=== PATIENT | female | born 1985 | race American Indian/Alaskan Native ===

== ENCOUNTER 2018-03-08 23:37 | Emergency (ER) | payer MEDICAID ==
[2018-03-08 23:48] VITALS: BP 123/78
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
[2018-03-09] MEDS ORDERED: LOVENOX SUB-Q ONE ×3 (01:24→01:26)
[2018-03-09] MEDS ORDERED: LOVENOX SUB-Q SCH (10:00)
== END 2018-03-09 02:00 | disposition home or self-care (01) ==
LOC: ED 23:37
DX: M79.604 Pain in right leg (principal); J45.909 Unspecified asthma, uncomplicated; F17.200 Nicotine dependence, unspecified, uncomplicated; F12.10 Cannabis abuse, uncomplicated; Z86.718 Personal history of other venous thrombosis and embolism; Z86.711 Personal history of pulmonary embolism
CPT/HCPCS: 96372; 99282; J1650

== ENCOUNTER 2018-07-26 01:05 | Emergency (ER) | payer MEDICAID ==
[2018-07-26] MEDS ORDERED: TORADOL IV ONE (04:33)
[2018-07-26] MEDS ORDERED: BENADRYL IV ONE (04:33)
[2018-07-26] MEDS ORDERED: REGLAN IV ONE (04:33)
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
[2018-07-26 05:00] VITALS: BP 117/75
== END 2018-07-26 05:08 | disposition home or self-care (01) ==
LOC: ED 01:05
DX: G43.919 Migraine, unspecified, intractable, without status migrainosus (principal); Z21 Asymptomatic human immunodeficiency virus [HIV] infection status; B37.0 Candidal stomatitis; J45.909 Unspecified asthma, uncomplicated; F17.200 Nicotine dependence, unspecified, uncomplicated; Z86.711 Personal history of pulmonary embolism; Z86.718 Personal history of other venous thrombosis and embolism
CPT/HCPCS: 96374; 96375; 99282; J1200; J1885; J2765

== ENCOUNTER 2019-03-19 03:07 | Emergency (ER) | payer MEDICAID, OTHER ==
[2019-03-19] MEDS ORDERED: TORADOL IV ONE (03:29)
[2019-03-19] MEDS ORDERED: ZOFRAN IV ONE (03:31)
[2019-03-19] MEDS ORDERED: NACL 0.9% 1000 ML 1,000 ML IV ONE (03:31)
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
[2019-03-19] MEDS ORDERED: NORCO 5/325 PO ONE (05:41)
--- NOTE | 2019-03-19 05:51 | Cat Scan Report ---
PROCEDURE: CT HEAD/BRAIN WO CON TECHNIQUE: Computerized tomography of the head was performed without contrast material. CT DOSE LENGTH PRODUCT: mGycm HISTORY: HEADACHE COMPARISONS: None . FINDINGS: There is generalized enlargement of the entire ventricular system compatible with image indicating hy drocephalus. There is acute subarachnoid blood in the left sylvian fissure. The basal cisterns are ef faced. There is no parenchymal hemorrhage. The visualized sinuses are clear. The mastoid air cells ar e well pneumatized. The calvarium appears intact. IMPRESSION: Acute subarachnoid hemorrhage with blood seen in the left sylvian fissure. Generalized communicating hydrocephalus. Effacement of the basal cisterns. Developing cerebral edema cannot be excluded. The findings were discussed with Dr. Emerson at 5:48 AM on 03/19/2019. This document is electronically signed by Deangelo Henry MD., Mar 19 2019 05:48:57 AM ET
[2019-03-19 06:05] LABS: Basophils % (Auto) 0.9 % (0.0-1.8); Eosinophils % (Auto) 0.8 % (0.0-4.3); Hematocrit 27.9 % (30.3-42.9); Lymphocytes # (Auto) 0.4 K/mm3 (1.2-5.4); Lymphocytes % (Auto) 9.7 % (13.4-35.0); Mean Corpuscular HGB Conc 32 % (30-34); Mean Corpuscular Volume 76 fl (79-97); Monocytes # (Auto) 0.3 K/mm3 (0.0-0.8); Monocytes % (Auto) 6.2 % (0.0-7.3); Red Blood Count 3.66 M/mm3 (3.65-5.03)
[2019-03-19 06:08] LABS: Red Cell Distribution Width 21.3 % (13.2-15.2)
[2019-03-19 06:15] LABS: INR 0.98 (0.87-1.13)
[2019-03-19 06:16] LABS: Partial Thromboplastin Time 32.6 Sec. (24.2-36.6)
[2019-03-19 06:28] VITALS: BP 123/76
[2019-03-19 06:30] LABS: Alanine Aminotransferase 14 units/L (7-56); Albumin 4.1 g/dL (3.9-5); BUN/Creatinine Ratio 17; Blood Urea Nitrogen 10 mg/dL (7-17); Calcium 8.1 mg/dL (8.4-10.2); Hemolysis Index 11
[2019-03-19] MEDS ORDERED: KEPPRA 1,000 MG/NS 0.75% 100ML 1,000 MG/100 ML BAG IV ONE (07:00)
[2019-03-19 07:27] LABS: Mean Platelet Volume 10.9 fl (6-12); Platelet Count 96 K/mm3 (140-440)
[2019-03-19] MEDS ORDERED: KEPPRA 1,000 MG in D5W 100 ML IV SCH (18:00)
== END 2019-03-19 07:15 | disposition other institution (70) ==
LOC: ED 03:07
DX: I60.9 Nontraumatic subarachnoid hemorrhage, unspecified (principal); J45.909 Unspecified asthma, uncomplicated; F17.200 Nicotine dependence, unspecified, uncomplicated
CPT/HCPCS: 36415; 70450; 80053; 84703; 85025; 85610; 85730; 96374; 96375; 99285; J1885; J1953; J2405; J7030

== ENCOUNTER 2019-06-07 03:04 | Inpatient (IN) | payer OTHER ==
[2019-06-07 04:30] LABS: Basophils % (Auto) 0.8 % (0.0-1.8); Eosinophils # (Auto) 0.1 K/mm3 (0.0-0.4); Eosinophils % (Auto) 0.9 % (0.0-4.3); Hematocrit 33.3 % (30.3-42.9); Hemoglobin 10.8 gm/dl (10.1-14.3); Lymphocytes # (Auto) 0.8 K/mm3 (1.2-5.4); Lymphocytes % (Auto) 12.4 % (13.4-35.0); Mean Corpuscular HGB Conc 32 % (30-34); Mean Corpuscular Volume 81 fl (79-97); Monocytes # (Auto) 0.4 K/mm3 (0.0-0.8); Monocytes % (Auto) 6.8 % (0.0-7.3); Platelet Count 174 K/mm3 (140-440); Red Blood Count 4.12 M/mm3 (3.65-5.03); Red Cell Distribution Width 17.3 % (13.2-15.2)
[2019-06-07 06:09] LABS: Bilirubin,Urine NEG (Negative); Blood,Urine LG (Negative); Color,Urine Yellow (Yellow); Mucus,Urine 2+ /HPF; Protein,Urine <15 mg/dL mg/dL (Negative); Urobilinogen,Urine < 2.0 mg/dL (<2.0)
--- NOTE | 2019-06-07 07:20 | Ultrasound Report ---
OB Ultrasound HISTORY: vag bleeding, . TECHNIQUE: Grayscale and color Doppler imaging performed. COMPARISON: None FINDINGS: Transabdominal and endovaginal imaging was performed Uterus measures 8.5 x 5.3 x 4.9 cm with endometrial echocomplex measuring 1.7 cm. No intrauterine ges tation is identified. In the left adnexal region, there is an ectopic containing a pole measuring 2 mm vasiliy elating with an EGA of 5 weeks and 5 days. There is cardiac activity is well with a heart rate of 108 bpm. A simple right ovarian cyst is present. No significant pelvic free fluid identified. IMPRESSION: Ectopic in the left adnexal region. Critical result discovered at 0613 hours and called to Dr. Mcdonnell at 0615 hours on 06/07/2019. A read b ack was performed. Signer Name: Leo Esparza MD Signed: 06/07/2019 7:15 AM Workstation Name: [id number]
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
--- NOTE | 2019-06-07 10:02 | Anesthesia Consultation ---
Anesthesia Consult and Med Hx Date of service: 06/07/19 - Airway Anesthetic Teeth Evaluation: Good (broken lower right molar) ROM Head & Neck: Adequate Mental/Hyoid Distance: Adequate Mallampati Class: Class II Intubation Access Assessment: Probably Good - Pulmonary Exam CTA: Yes - Cardiac Exam Cardiac Exam: RRR - Pre-Operative Health Status ASA Pre-Surgery Classification: ASA3 Proposed Anesthetic Plan: General - Pulmonary Hx Smoking: Yes (1-2 cigs/day) Hx Asthma: Yes Hx Respiratory Symptoms: No Home Oxygen Therapy: No - Cardiovascular System Hx Hypertension: No Hx Heart Attack/AMI: No Hx Percutaneous Transluminal Coronary Angioplasty (PTCA): No - Central Nervous System Hx Seizures: No CVA: Yes (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 Noncompliant with medications, including ARVs and xarelto and w/ medical follow up for comorbid conditions. Scheduled for exploratory laparoscopy.
--- NOTE | 2019-06-07 10:04 | Anesthesia Day of Surgery ---
Anesthesia Day of Surgery - Day of Surgery Patient Examined: Yes Patient H&P Reviewed: Yes Patient is NPO: Yes
[2019-06-07] MEDS ORDERED: DILAUDID IV PRN (11:55)
[2019-06-07] MEDS ORDERED: VERSED IV NR (12:00)
[2019-06-07] MEDS ORDERED: TRANSDERM-SCOP TD NR (12:00)
[2019-06-07] MEDS ORDERED: LACTATED RINGERS 1,000 ML IV SCH (12:00)
[2019-06-07] MEDS ORDERED: DILAUDID ONE ×2 (12:53→16:01)
[2019-06-07] MEDS ORDERED: DIPRIVAN 10 MG/ML IV ONE (12:53)
[2019-06-07] MEDS ORDERED: XYLOCAINE MPF 2% ONE (12:55)
[2019-06-07] MEDS ORDERED: QUELICIN ONE (12:56)
[2019-06-07] MEDS ORDERED: ZEMURON IV ONE ×2 (12:57→15:13)
[2019-06-07] MEDS ORDERED: MARCAINE 0.5% INFILTRATI ONE (13:03)
[2019-06-07] MEDS ORDERED: ANCEF/STERILE WATER 2 GM/20 ML IV NR (13:52)
[2019-06-07] MEDS ORDERED: LACTATED RINGERS 1,000 ML ONE (14:54)
[2019-06-07] MEDS ORDERED: ROBINUL ONE (15:39)
[2019-06-07] MEDS ORDERED: BLOXIVERZ ONE (15:39)
[2019-06-07] MEDS ORDERED: ZOFRAN ONE (15:43)
[2019-06-07] MEDS ORDERED: MORPHINE IV PRN ×2 (16:07→20:19)
--- NOTE | 2019-06-07 16:40 | Operative Report ---
Operative Report Operative Report: Date of surgery: 06/07/2019 Admitting diagnosis: Ectopic , previous history of deep venous thrombosis and pulmonary embolism, rupture of cerebral aneurysm, HIV positive status, umbilical hernia. Postoperative diagnosis: The same. Left tubal ectopic . Procedure: Examination under anesthesia, Exploratory laparoscopy, left salpingectomy, repair of umbilical hernia. Surgeon: C.C.MD Sharon Anesthesiologist: Cari Layton M.D. Anesthesia: Gen. anesthesia Findings: There was a saccular swelling on the distal aspect of the left fallopian tube with evidence of burgundy colored coagulum on fimbrial of this left fallopian tube. That was about 50 mL of hemoperitoneum confined largely within the pelvis. Both ovaries were grossly normal. The right fallopian shield was grossly normal. The uterus was normal sized and grossly normal. There were multiple strands of adhesions bridging the anterior superior aspect of the lower and the thoracic cage. The greater omentum swallow as the bowels back with the same suture laparoscope were all grossly normal. Vaginally, the vulva vagina and cervix were grossly normal. Estimated blood loss attributable to surgery: 1 mL or less. Complications: None Procedure in detail: The patient was taken to the operating room and given general anesthesia. The patient was placed in the lithotomy position and prepped in the vulvar vagina and abdomen. The drapes were placed. An indwelling Giordano catheter was inserted. The cervix was stabilized with a Hanks tenaculum. A timeout was done. With the go ahead from the executive associate, a subumbilical curvilinear incision was made. The Veress needle was inserted making sure to point the tip of this instrument into the free hollow of the pelvis. The Veress needle was initially aspirated and there was no blood in the aspirate. The Veress needle was then flushed through with a small quantity of sterile normal saline without any resistance. The general peritoneal cavity was thereafter insufflated with 3 L of carbon dioxide. The 10 mm port with its trocar were inserted into the peritoneal cavity and again pointing the tip of this instrument into the free hollow of the pelvis. The laparoscope confirmed successful access to the peritoneal cavity. Under laparoscopic view two additional 5 mm ports were placed one for each flank. A thorough examination of the peritoneal cavity was done of the findings of the reported. The left tubal ectopic was identified and excised using the endoscopic LigaSure. The existing pneumoperitoneum was suctioned out of the peritoneal cavity. The pelvis was thoroughly irrigated with sterile normal saline. The pneumoperitoneum was expelled. All instruments were retrieved. The small umbilical hernia defect was incorporated into the repair of the surgically placed ostium on the same side and closed with interrupted stitches of 0 Vicryl. The skin was closed subcuticularly with 4-0 Vicryl. The 2 stab incisions in the flange was sealed with Dermabond. The tenaculum placed on the cervix was removed as was the indwelling Giordano catheter. The removed specimen was submitted for histopathology. The patient tolerated the procedure well. All sponge and instrument counts were correct. There were no complications. The estimated blood loss was minimal Patient was returned to the recovery room in very good condition. The patient was fit to go home after fully recovering from general anesthesia and nicked in the protocol for discharge except that she needs instructions from either the hospitalist team or tanning solution maker regarding her prior history of DVT and cerebral bleed. She will remain under observation in the hospital for this to and then she can go home
--- NOTE | 2019-06-07 17:37 | Post Anesthesia Evaluation ---
- Post Anesthesia Evaluation Patient Participated: Yes Airway Patent: Yes Stable Respiratory Function: Yes Nausea/Vomiting: No Temp > 96.8F: Yes Pain Manageable: Yes Adequeate Hydration: Yes Anesthesia Complications: No
[2019-06-07] MEDS ORDERED: D5LR 1,000 ML IV SCH (18:00)
[2019-06-07] MEDS ORDERED: ZOFRAN IV PRN (20:16)
[2019-06-08] MEDS: NORCO 5/325 PO PRN ×2 (05:43→14:04)
--- NOTE | 2019-06-08 06:22 | Event Note ---
Date: 06/08/19 [id number]
--- NOTE | 2019-06-08 16:32 | Progress Note ---
Assessment and Plan - Patient Problems (1) H/O unilateral salpingectomy Current Visit: Yes Status: Acute Plan to address problem: Continue routine post-op care. Patient to follow up in clinic in one week. (2) Ectopic Current Visit: Yes Status: Acute (3) HIV (human immunodeficiency virus infection) Current Visit: Yes Status: Acute Plan to address problem: Patient has appointment to see ID at [facility] next week. She is not on any anti- retroviral now. (4) H/O deep venous thrombosis Current Visit: Yes Status: Acute Plan to address problem: Patient has not been on coumadin for over 2 months. No anticoagulant needed as per library clerk talking books. (5) H/O cerebral aneurysm repair Current Visit: Yes Status: Acute Subjective - Subjective Date of service: 06/08/19 Interval history: Patient is a 33-year-old , who was admitted for abdominal pain and vaginal bleeding. She was diagnosed with left-sided tubal . She underwent a laparoscopic left salpingiectomy. She is POD1. She reports a recent past medical history of a subarachnoid bleed in February 2019. Patient also has a history of asthma, HIV, pulmonary embolism, DVT. Patient reports her next appointment with Farhat GOLDBERG is June 21, 2019. She has not taken any anti-retroviral meds for a long time due to insurance issues. She said that in february 2019, her CD4 was 2. She said that she moved to [place] from [place] 2 years ago and has not been on any meds for while. Her next neurology appointment is 06/10/2019 at [facility]. Patient currently does not have a OB provider. Hematology consult was done. No note was written by the clothing consultant yet but the nurese and the patient told me that he cleared her for discharge today. Patient denies any complaint. Objective - Vital Signs Latest vital signs: Vital Signs Temp Pulse Pulse Resp Resp BP BP 06/08/19 12:00 97.9 F 80 20 97/48 06/08/19 07:17 98.0 F 79 20 101/59 06/08/19 05:43 20 06/08/19 05:07 97.9 F 72 18 94/49 06/08/19 00:53 97.7 F 73 18 98/56 06/07/19 22:17 20 06/07/19 20:12 97.5 F L 65 18 98/58 06/07/19 20:10 74 20 06/07/19 18:17 18 06/07/19 18:00 98 F 67 18 105/58 06/07/19 17:00 97.6 F 62 16 102/60 06/07/19 16:45 71 15 108/58 06/07/19 16:30 70 14 95/52 Pulse Ox 06/08/19 12:00 99 06/08/19 07:17 97 06/08/19 05:43 06/08/19 05:07 06/08/19 00:53 06/07/19 22:17 06/07/19 20:12 06/07/19 20:10 06/07/19 18:17 06/07/19 18:00 06/07/19 17:00 97 06/07/19 16:45 100 06/07/19 16:30 100 Intake and Output 06/08/19 06/08/19 06/08/19 07:59 15:59 23:59 Intake Total 260 600 Output Total 200 Balance 60 600 Intake: IV 20 Right Antecubital 20 Oral 600 Intake, Free Water 240 Output: Urine 200 Void 200 Other: Total, Intake Amount 360 Total, Output Amount 200 Voiding Method Toilet # Voids Void 200 1 - Exam Cardiovascular: Present: Normal S1, Normal S2 Lungs: Present: Clear to auscultation Vulva: both: normal Deep Tendon Reflex Grade: Normal +2
--- NOTE | 2019-06-08 16:38 | Discharge Summary ---
Providers - Providers Date of Admission: 06/07/19 09:29 Attending physician: JACQUELINE MONTIEL MD 06/07/19 09:36 Consult to Physician [CONS] Stat Comment: Consulting Provider: BETH SÁNCHEZ Physician Instructions: Reason For Exam: PT HAS HX DVT 06/07/19 10:44 Consult to Physician [CONS] Urgent Comment: Consult placed at request of Dr. Mendoza Consulting Provider: MILES DAY Physician Instructions: please give discharge instructions re dvt Reason For Exam: Ectopic , hx of DVT, Brain anyuerism, ICH [facility] Reason for admission: other (ectopic pegnancy left tube.) Procedure: other (laparoscopic salpingiectomy.) Hospital course: Patient is a 33-year-old , who was admitted for abdominal pain and vaginal bleeding. She was diagnosed with left-sided tubal . She underwent a laparoscopic left salpingiectomy. She is POD1. She reports a recent past medical history of a subarachnoid bleed in February 2019. Patient also has a history of asthma, HIV, pulmonary embolism, DVT. Patient reports her next appointment with [facility] is June 21, 2019. She has not taken any anti-retroviral meds for a long time due to insurance issues. She said that in february 2019, her CD4 was 2. She said that she moved to [place] from [place] 2 years ago and has not been on any meds for while. Her next neurology appointment is 06/10/2019 at [facility]. Patient currently does not have a OB provider. Hematology consult was done. No note was written by the as400 consultant yet but the nurese and the patient told me that he cleared her for discharge today. Patient denies any complaint. Objective Condition at discharge: Stable Disposition: DC-01 TO HOME OR SELFCARE - Discharge Diagnoses (1) H/O unilateral salpingectomy Status: Acute (2) Ectopic Status: Acute (3) HIV (human immunodeficiency virus infection) Status: Acute (4) H/O deep venous thrombosis Status: Acute (5) H/O cerebral aneurysm repair Status: Acute Plan - Discharge Medications Prescriptions: HYDROcodone/APAP 10-325 [[place] 10/325] 1 - 2 each PO Q6HR PRN 6 Days #26 tablet PRN Reason: Pain - Provider Discharge Summary Activity: no sex for 6 weeks, no strenuous exercise Diet: routine Instructions: routine Additional instructions: [] Smoking cessation referral if applicable(refer to patient education folder for contact #) [] Refer to [facility]'s [facility] Booklet Call your doctor immediately for: * Fever > 100.5 * Heavy vaginal bleeding ( >1 pad per hour) * Severe persistent headache * Shortness of breath * Reddened, hot, painful area to leg or breast * Drainage or odor from incision. * Keep incision clean and dry at all times and follow doctor's instructions regarding bathing/showering - Follow up plan
[2019-06-08 17:07] VITALS: BP 94/55
--- NOTE | 2019-06-10 03:11 | Consultation ---
REFERRED BY: Dr. Herrera. REASON FOR CONSULTATION: History of DVT, history of brain aneurysm surgery, and due for ectopic surgery. HISTORY OF PRESENT ILLNESS: I saw the patient in the [facility]ENIOR SECUR[facility] floor. The patient was found to be , was having vaginal bleed. She underwent surgery. PAST MEDICAL HISTORY: Asthma, HIV, DVT and PE the patient states in 2012 for which she received 6 months of anticoagulation. This was when she was in [place]. History of brain aneurysm, status post surgery In 02/2019, the patient was at [facility] and then transferred to [facility], was found to have brain aneurysm for which she underwent surgery and now follows with neurologist. During this admission, the patient underwent ectopic surgery. She is now postop. There is no bleeding. She is ambulating. She wants to go home. Energy level is good. At this time no headache, no visual disturbances. No ear discharge, no chest pain, no palpitations. No seizure, syncope. MEDICATIONS: Included pain medications and hydration. PHYSICAL EXAMINATION: VITAL SIGNS: Temperature 98, pulse 79, respirations 20, BP 101/59. HEENT: No pallor, no icterus. NECK: No neck lymph nodes. HEART: S1, S2. LUNGS: Clear to auscultation. ABDOMEN: Soft. EXTREMITIES: No calf tenderness. LABORATORY DATA: White cell 6, hemoglobin 10, MCV 81, platelet 174. Potassium 3.8, creatinine 0.6, calcium 8.1, bilirubin 0.8. ASSESSMENT AND PLAN: 1. History of deep venous thrombosis. This was in 2012 while she was in [place]. She did not have any more deep venous thromboses after that. She took 6 months of warfarin. At this time, she is ambulating. Postoperatively SCD devices were used. She wants to go home as her functional status/performance is near normal. Surgery bleeding was minimal. I am not keen to continue anticoagulation as she had only one deep venous thrombosis/pulmonary embolism episode. 2. History of brain aneurysm. The surgery was done in February at [facility]. It has been more than 6 weeks since surgery. The patient will be followed by [facility]. 3. Human immunodeficiency virus, follows Infectious Disease. The patient is stable for discharge. JOB# [id number] NM/NTS
== END 2019-06-08 18:35 | disposition home or self-care (01) | DRG 818 ==
LOC: ED 03:04 → OB 09:29
PROVIDERS: ADMIT Obstetrics & Gynecology; ATTEND Obstetrics & Gynecology
PROC: 0UB64ZZ Excision of Left Fallopian Tube, Percutaneous Endoscopic Approach (ICD-10-PCS; principal; 2019-06-07)
PROC: 0WQF4ZZ Repair Abdominal Wall, Percutaneous Endoscopic Approach (ICD-10-PCS; 2019-06-07)
DX: O00.102 Left tubal pregnancy without intrauterine pregnancy (principal); O22.21 Superficial thrombophlebitis in pregnancy, first trimester; O99.511 Diseases of the respiratory system complicating pregnancy, first trimester; O99.331 Smoking (tobacco) complicating pregnancy, first trimester; K42.9 Umbilical hernia without obstruction or gangrene; F17.200 Nicotine dependence, unspecified, uncomplicated; Z86.73 Personal history of transient ischemic attack (TIA), and cerebral infarction without residual deficits; Z86.718 Personal history of other venous thrombosis and embolism; Z86.711 Personal history of pulmonary embolism; Z79.899 Other long term (current) drug therapy; Z3A.00 Weeks of gestation of pregnancy not specified
CPT/HCPCS: 36415; 76801; 76817; 81001; 84702; 85025; 86900; 86901; 88305; 96365; G0378; J0330; J1170; J2250; J2270; J2405; J2704; J2710; J7120; J7121

== ENCOUNTER 2022-06-15 01:21 | Emergency (ER) | payer MEDICARE ==
[2022-06-15 03:28] LABS: Basophils % (Auto) 0.2 % (0.0-1.8); Hematocrit 30.5 % (30.3-42.9); Hemoglobin 9.6 gm/dl (10.1-14.3); Lymphocytes # (Auto) 0.5 K/mm3 (1.2-5.4); Lymphocytes % (Auto) 12.9 % (13.4-35.0); Mean Corpuscular HGB Conc 31 % (30-34); Mean Corpuscular Volume 80 fl (79-97); Monocytes # (Auto) 0.4 K/mm3 (0.0-0.8); Red Blood Count 3.84 M/mm3 (3.65-5.03)
[2022-06-15 03:29] LABS: Platelet Count 109 K/mm3 (140-440); Red Cell Distribution Width 20.9 % (13.2-15.2)
[2022-06-15 03:36] LABS: Blood Urea Nitrogen 10 mg/dL (7-17); Calcium 9.2 mg/dL (8.4-10.2); Hemolysis Index 4
[2022-06-15 03:55] LABS: BUN/Creatinine Ratio 17
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
--- NOTE | 2022-06-15 08:02 | Vascular Lab Report ---
DUPLEX DOPPLER LOWER EXTREMITY VEINS, LEFT INDICATION / CLINICAL INFORMATION: lower ext swelling and pain. TECHNIQUE: Duplex doppler imaging was performed through the veins of the left lower extremity using v enous compression and other maneuvers. COMPARISON: None available. FINDINGS: LEFT COMMON FEMORAL VEIN: Negative. LEFT FEMORAL VEIN: Negative. LEFT POPLITEAL VEIN: Negative. LEFT CALF VEINS: Occlusive thrombus left peroneal vein. ADDITIONAL FINDINGS: None. IMPRESSION: 1. Occlusive calf vein thrombus in the left peroneal vein. These findings were discussed with David Houston by the employment instructional associate at 0748. Signer Name: Huy Joshua MD Signed: 06/15/2022 7:58 AM Workstation Name: [employer]
[2022-06-15 09:19] LABS: INR 0.88 (0.87-1.13)
[2022-06-15 09:20] LABS: Partial Thromboplastin Time 45.9 Sec. (24.2-36.6)
[2022-06-15] MEDS ORDERED: RIVAROXABAN 15 MG TAB PO SCH (10:00)
[2022-06-15 10:13] VITALS: BP 136/81
[2022-06-15 10:26] LABS: Hematocrit 31.8 % (30.3-42.9); Hemoglobin 10.1 gm/dl (10.1-14.3); Mean Corpuscular HGB Conc 32 % (30-34); Mean Corpuscular Volume 79 fl (79-97); Platelet Count 108 K/mm3 (140-440); Red Blood Count 4.01 M/mm3 (3.65-5.03)
[2022-06-15 10:33] LABS: Red Cell Distribution Width 20.5 % (13.2-15.2)
== END 2022-06-15 10:12 | disposition home or self-care (01) ==
LOC: ED 01:21
DX: I82.452 Acute embolism and thrombosis of left peroneal vein (principal); J45.909 Unspecified asthma, uncomplicated; I26.99 Other pulmonary embolism without acute cor pulmonale; Z21 Asymptomatic human immunodeficiency virus [HIV] infection status; F17.200 Nicotine dependence, unspecified, uncomplicated; Z79.899 Other long term (current) drug therapy
CPT/HCPCS: 36415; 80048; 82565; 85025; 85027; 85379; 85610; 85730; 99284